=== PATIENT | male | born 1945 | race Hispanic/Latino ===

== ENCOUNTER 2017-04-24 08:46 | Day surgery (SDC) | payer OTHER ==
[2017-04-22 15:12] LABS: BASOPHILS % (AUTO) 0.2 % (0.0-5.0); EOSINOPHILS % (AUTO) 2.9 % (0.0-8.0); HEMATOCRIT 38.1 % (42-54); LYMPHOCYTES % (AUTO) 20.6 % (21.0-51.0); MEAN CORPUSCULAR HEMOGLOBIN 32.5 pg (27.0-33.0); MEAN CORPUSCULAR HGB CONC 34.3 g/dL (32.0-36.0); MEAN CORPUSCULAR VOLUME 94.6 fL (79-99); MONOCYTES % (AUTO) 5.1 % (3.0-13.0); NEUTROPHILS % (AUTO) 71.2 % (40.0-77.0); PLATELET COUNT (AUTO) 306 K/uL (130-400); RED BLOOD CELL COUNT(AUTO) 4.03 MIL/uL (4.50-6.20); RED CELL DISTRIBUTION WIDTH 15.8 % (11.0-15.5); WHITE BLOOD COUNT (AUTO) 8.4 K/uL (4.8-10.8)
[2017-04-22 15:15] VITALS: BP 134/66
[2017-04-22 15:21] LABS: CREATININE 0.8 mg/dL (0.5-1.5)
[~2017-04-24] VITALS: Ht 172.7 cm; Wt 87.9 kg
[2017-04-24] VITALS (18 sets, daily range): BP systolic 120–146; BP diastolic 57–80
[~2017-04-24 08:46] MED LIST: ASPI-555 PO; ATOR40TA71 PO; CARV12.511 PO; TAMS-1 PO
[2017-04-24] MEDS ORDERED: LACTATED RINGERS 1000ML 1,000 ML IV ONE (09:20)
[2017-04-24] MEDS ORDERED: FENTANYL CITRATE PF 50 MCG/1 ML 2ML VIAL ONE (10:02)
[2017-04-24] MEDS ORDERED: ONDANSETRON HCL 4 MG/2 ML VIAL ONE ×2 (10:02→11:28)
[2017-04-24] MEDS ORDERED: PROPOFOL 10 MG/ML 20ML VIAL IV ONE (10:02)
[2017-04-24] MEDS ORDERED: MIDAZOLAM HCL 1 MG/ML 2ML VIAL ONE (10:02)
[2017-04-24] MEDS ORDERED: LIDOCAINE PF 2% 5ML ABBOJECT ONE (10:02)
[2017-04-24] MEDS ORDERED: LEVOFLOXACIN 500 MG/D5W 100 ML 100 ML ONE (10:45)
[2017-04-24] MEDS ORDERED: EPHEDRINE SULFATE 50 MG/ML AMPULE ONE (11:46)
[2017-04-24] MEDS ORDERED: MEPERIDINE-PF 50 MG/ML SYG ONE (12:15)
[2017-04-24] MEDS ORDERED: PHENAZOPYRIDINE HCL 200 MG TABLET ONE (13:11)
== END 2017-04-24 15:38 | disposition home or self-care (01) ==
LOC: DAH 08:46
PROVIDERS: ATTEND Urology
DX: N21.0 Calculus in bladder (principal); Z98.890 Other specified postprocedural states; I25.10 Atherosclerotic heart disease of native coronary artery without angina pectoris; I10 Essential (primary) hypertension; Z79.899 Other long term (current) drug therapy; Z88.0 Allergy status to penicillin; Z87.891 Personal history of nicotine dependence
CPT/HCPCS: 36415; 52317; 80048; 82360; 85025; 88300; 93005; A4344; A4358; A4510; A4600; A4930; C1758; C1769; J1956; J2001; J2175; J2250; J2405 ×2; J2704; J3010; J3490; J7120

== ENCOUNTER → 2020-01-09 | Outpatient (CLI) | payer OTHER ==
[~2020-01-09] MED LIST changes: -ASPI-555 PO
== END | disposition home or self-care (01) ==
LOC: RAH 10:49
PROVIDERS: ATTEND Urology
DX: N40.0 Benign prostatic hyperplasia without lower urinary tract symptoms (principal); R31.29 Other microscopic hematuria
CPT/HCPCS: 76770